=== PATIENT | female | born 1970 | race Caucasian/White ===

== ENCOUNTER 2022-12-09 10:57 | Emergency (ER) | payer MEDICAID ==
[2022-12-09] VITALS (8 sets, daily range): BP systolic 120–144; BP diastolic 69–81
[~2022-12-09] VITALS: Ht 170.2 cm; Wt 149.6 kg
[2022-12-09] MEDS ORDERED: MOTRIN800 MG PO (12:30)
[2022-12-09] MEDS ORDERED: FLEXERIL5 M1 PO (12:30)
[2022-12-09] MEDS ORDERED: MEDDOSEPAK PO (12:30)
== END 2022-12-09 12:44 | disposition home or self-care (01) ==
LOC: ED 10:57
DX: M54.50 Low back pain, unspecified (principal); G89.29 Other chronic pain